=== PATIENT | male | born 1965 | race Caucasian/White ===

== ENCOUNTER 2019-06-04 19:03 | Emergency (ER) | payer MEDICARE, BC ==
--- NOTE | 2019-06-04 19:21 | ER Document Report ---
ED Medical Screen (RME) - General Stated Complaint: POSS ALLERGIC REACTION Time Seen by Provider: 06/04/19 19:13 Mode of Arrival: Ambulatory Information source: Patient Notes: Patient presents complaining of allergic reaction that is caused wounds to the toes of his right foot. Patient feels that the wounds were caused by allergic reaction to a detergent that he used 2 weeks ago. Patient states that he has not used a detergent since then. Patient is a dialysis patient normally dialyzes on Tuesday and did dialyze today. Patient states that he has been on vancomycin for a foot infection to the right foot. Patient does have a history of a previous amputation to the left leg due to a vascular issue. Patient right foot cool to touch with no discernible pulse, multiple necrotic wounds to the toes of the right foot. I have greeted and performed a rapid initial assessment of this patient. A comprehensive ED assessment and evaluation of the patient, analysis of test results and completion of the medical decision making process will be conducted by additional ED providers. Physical Exam - General Notes: Erythematous, cool right foot with no discernible pulse, multiple necrotic wounds to the toes of the right foot
[2019-06-04 20:00] LABS: INTERNATIONAL RATION (INR) 1.05; PARTIAL THROMBOPLASTIN TIME 20.4 SEC (23.5-35.8); PROTHROMBIN TIME 13.7 SEC (11.4-15.4)
--- NOTE | 2019-06-04 20:03 | ER Document Report ---
ED General - General Chief Complaint: Wound Infection Stated Complaint: POSS ALLERGIC REACTION Time Seen by Provider: 06/04/19 19:13 Mode of Arrival: Ambulatory Information source: Patient TRAVEL OUTSIDE OF THE [place] IN LAST 30 DAYS: No - HPI Onset: Other - over the last 2 weeks Onset/Duration: Gradual Quality of pain: Achy, Cramping, Throbbing Severity: Moderate Pain Level: 3 Associated symptoms: Other - Right Foot with dicoloration on dorsum and with necrosis of his 3rd and 5th toes. Exacerbated by: Walking - and exertion Relieved by: Other - rest Notes: 54 year old male with a history of PVD s/p left AKA, ESRD, DM, HTN, HLD here for evaluation of right lower leg and foot pain along with discoloration of his 3rd and 5th toes for the last 2 weeks. The patient says he washed his cloths with a laundry detergent he hasnt used before and he feels he is having an allergic reaction. The patient says the pain in his right lower leg and right foot is made worse with ambulation and made better with rest and elevation. The patient is followed by Vascular Surgery at [facility]. - Related Data Allergies/Adverse Reactions: cefazolin [From Anc] Allergy (Verified 06/04/19 19:21) Past Medical History - General Information source: Patient - Social History Smoking Status: Current Some Day Smoker Frequency of alcohol use: Occasional Drug Abuse: None Family History: Reviewed & Not Pertinent Patient has suicidal ideation: No Patient has homicidal ideation: No - Past Medical History Cardiac Medical History: Reports: Hx Hypercholesterolemia, Hx Hypertension, Hx Peripheral Vascular Disease - s/p left above the knee amputation Pulmonary Medical History: Reports: None EENT Medical History: Reports: None Endocrine Medical History: Reports: Hx Diabetes Mellitus Type 2 Review of Systems - Review of Systems Constitutional: No symptoms reported EENT: No symptoms reported Cardiovascular: No symptoms reported Respiratory: No symptoms reported Gastrointestinal: No symptoms reported Genitourinary: No symptoms reported Male Genitourinary: No symptoms reported Musculoskeletal: Other - pain right foot and lower leg which is made worse with ambulation and better with rest Skin: Other - right 5th and 3rd Toes are black in color Physical Exam - Vital signs Vitals: Temp Pulse Resp BP Pulse Ox 97.5 F 85 14 174/79 H 100 06/04/19 19:11 06/04/19 19:11 06/04/19 19:11 06/04/19 19:11 06/04/19 19:11 - Notes Notes: GENERAL: Chronically ill appearing, well-nourished and in no acute distress. HEAD: Atraumatic, normocephalic. EYES: Pupils equal round and reactive to light, extraocular movements intact, sclera anicteric, conjunctiva are normal. ENT: TMs normal, nares patent, oropharynx clear without exudates. Moist mucous membranes. NECK: Normal range of motion, supple without lymphadenopathy or JVD. LUNGS: Breath sounds clear to auscultation bilaterally and equal. No wheezes rales or rhonchi. HEART: Regular rate and rhythm without murmurs, rubs or gallops. ABDOMEN: Soft, nontender, normoactive bowel sounds. No guarding, no rebound. No masses appreciated. EXTREMITIES: Left AKA, Right foot discolored and dorsum and slightly cool to touch. Right 3rd and 5th toes are dry and necrotic consistent with dry gangrene. 4th toe has escar on bottom of toe. No palpable DP or PT pulses but flow is seen on ultrasound in PT and DP (although faint). Normal range of motion, no pitting or edema. No clubbing or cyanosis. NEUROLOGICAL: Cranial nerves II through XII grossly intact. Normal speech, normal gait. PSYCH: Normal mood, normal affect. SKIN: Warm, Dry, normal turgor, no rashes. See extremity exam of this note for details of right foot. Course - Re-evaluation Re-evalutation: 06/04/19 21:57 The patient has dry gangrene of his right 3rd and 5th toes and he has an escar on the bottom of his right 4th toe. Patient has no palpable pulses in his right foot but flow is seen with Vascular Ultrasound. [facility] Vascular Surgery was called and the Surgeon vision care associate would like the patient to follow up with Dr. Corbett's office tomorrow. I forwarded the patient's US images to [facility]. Isabelle lewis has normal vital signs and labs consistent with his chronic diseases. Patient given a take home [place] pack for pain. - Vital Signs Vital signs: Temp Pulse Resp BP Pulse Ox 98.5 F 86 16 150/83 H 99 06/04/19 22:02 06/04/19 22:02 06/04/19 22:02 06/04/19 22:02 06/04/19 22:02 - Laboratory Result Diagrams: 06/04/19 19:40 06/04/19 20:44 Laboratory results interpreted by me: 06/04/19 06/04/19 06/04/19 19:40 19:40 20:44 Hgb 12.7 L RDW 17.1 H Lymph % (Auto) 12.6 L Seg Neutrophils % 81.4 H APTT 20.4 L Chloride 94 L Carbon Dioxide 32 H BUN 28 H Creatinine 5.01 H Est GFR ( Amer) 15 L Est GFR (MDRD) Non-Af 12 L Glucose 143 H Direct Bilirubin 0.5 H Alkaline Phosphatase 149 H - Diagnostic Test Radiology reviewed: Image reviewed, Reports reviewed Discharge - Discharge Clinical Impression: Peripheral vascular disease Condition: Stable Disposition: HOME, SELF-CARE Instructions: Peripheral Vascular Disease ([facility]) Additional Instructions: Follow up with Dr. Corbett's Office at the [facility] tomorrow. Call to make an urgent appointment for tomorrow as I spoke the Vascular Surgeon vision care associate for the group and he feels you need urgent follow up. You have dry gangrene of your right 3rd and 5th toes and poor blood flow to your right foot. You had a Vascular Ultrasound here in the ER and the images were electronically sent to [facility].
[2019-06-04 20:06] LABS: ABSOLUTE LYMPHOCYTES (AUTO) 0.8 10^3/uL (0.5-4.7); ABSOLUTE MONOCYTES (AUTO) 0.3 10^3/uL (0.1-1.4); BASOPHILS % (AUTO) 0.7 % (0-2); EOSINOPHILS % (AUTO) 0.6 % (0-6); HEMATOCRIT 37.9 % (37.9-51.0); HEMOGLOBIN 12.7 g/dL (13.5-17.0); LYMPHOCYTES % (AUTO) 12.6 % (13-45); MEAN CORPUSCULAR HEMOGLOBIN 28.7 pg (27.0-33.4); MEAN CORPUSCULAR HGB CONC 33.6 g/dL (32.0-36.0); MEAN CORPUSCULAR VOLUME 85 fl (80-97); MONOCYTES % (AUTO) 4.7 % (3-13); PLATELET COUNT 237 10^3/uL (150-450); RED BLOOD COUNT 4.44 10^6/uL (4.35-5.55); RED CELL DISTRIBUTION WIDTH 17.1 % (11.5-14.0); SEGMENTED NEUTROPHILS % (AUTO) 81.4 % (42-78); TOTAL CELLS COUNTED % (AUTO) 100 %; WHITE BLOOD COUNT 6.2 10^3/uL (4.0-10.5)
[2019-06-04 21:19] LABS: ALKALINE PHOSPHATASE 149 U/L (38-126); ANION GAP 14 (5-19); ASPARTATE AMINO TRANSFERASE 21 U/L (17-59); BILIRUBIN,DIRECT 0.5 mg/dL (0.0-0.4); BILIRUBIN,TOTAL 0.6 mg/dL (0.2-1.3); BLOOD UREA NITROGEN 28 mg/dL (7-20); CALCIUM 9.1 mg/dL (8.4-10.2); CARBON DIOXIDE 32 mmol/L (22-30); CHLORIDE 94 mmol/L (98-107); GLUCOSE 143 mg/dL (75-110); POTASSIUM 3.7 mmol/L (3.6-5.0); TOTAL PROTEIN 7.5 g/dL (6.3-8.2)
--- NOTE | 2019-06-04 21:20 | RADIOLOGY REPORT (SQ) ---
CLINICAL INDICATION: eval for osteo of 5th and 3rd toes. Infection. TECHNIQUE: 3 view(s) were obtained of the right foot. COMPARISON: None. FINDINGS: No acute displaced fracture is identified of the foot. Alignment appears anatomic. Joint spaces are within normal limits for age. Soft tissue swelling of the foot laterally. Vascular calcification. Anterior posterior calcaneal spurring.. IMPRESSION: No evidence of acute displaced fracture of the foot. No plain radiographic evidence of osteomyelitis. Soft tissue swelling laterally
[2019-06-04 22:03] VITALS: BP 150/83
[2019-06-04] MEDS ORDERED: HYDROCODONE/ACETAMINOPHEN 5-325 MG (6 TAB/ER DISP) PO PRN (22:20)
--- NOTE | 2019-06-04 22:38 | RADIOLOGY REPORT (SQ) ---
INDICATION: RLE pain, cool extremity, +wounds to toes. COMPARISON: None. CORRELATION: None. Technique: Real time multiplanar ultrasonographic huffman scale, color Doppler, and pulse Doppler imaging was obtained of the right lower extremity arterial system. 34 images were obtained. FINDINGS: Right: Common femoral artery - 231 cm/s Deep femoral artery - cm/s Superficial femoral artery proximal - 35 cm/s Superficial femoral artery mid - 24 cm/s Superficial femoral artery distal - 0 cm/s Popliteal artery - 28 cm/s Anterior tibial artery - 8 cm/s Posterior tibial artery - 19 cm/s Dorsalis pedis - 24 cm/s Diastolic pressure measurements were not obtained. Common femoral is monophasic with spectral broadening with good upstroke and preservation of diastolic flow. Superficial femoral artery is monophasic with progressive spectral broadening and apparent short segment occlusion distally. Collaterals reconstitute the popliteal artery with a dampened upstroke significant spectral broadening but preservation of diastolic flow. Tibial vessels demonstrate weak monophasic waveform with preservation of diastolic flow. No ankle brachial indices IMPRESSION: The left kidney multilevel disease. Moderate inflow stenosis. Diffuse infrainguinal atherosclerosis to include what appears to be a short segment occlusion of superficial femoral artery. Collaterals reconstitute a diseased popliteal artery with markedly diseased 2 vessel runoff. No infrageniculate occlusive disease is identified..
== END 2019-06-04 22:27 | disposition home or self-care (01) ==
LOC: ER 19:03
DX: I73.9 Peripheral vascular disease, unspecified (principal); M79.661 Pain in right lower leg; F17.200 Nicotine dependence, unspecified, uncomplicated; E78.00 Pure hypercholesterolemia, unspecified; I10 Essential (primary) hypertension; E11.9 Type 2 diabetes mellitus without complications; Z89.612 Acquired absence of left leg above knee
CPT/HCPCS: 99284; 36415; 85025; 85610; 85730; 80053; 93926; 73630; A9270